=== PATIENT | male | born 1985 | race Two or more races ===

== ENCOUNTER 2021-11-01 18:36 | Emergency (ER) | payer BC ==
[2021-11-01] MEDS ORDERED: Aspirin 81 MG Tab.Chew PO ONE (19:00)
[2021-11-01] MEDS ORDERED: Nitroglycerin 0.4 MG Tab.SL SL ONE (19:01)
[2021-11-01 19:25] LABS: ANION GAP 7.3 meq/L (7-15); CHLORIDE,CL 101 mmol/L (98-107); SODIUM,NA 137 mmol/L (136-145)
[2021-11-01] MEDS ORDERED: methylPREDNISolone Sodium Succinate 125 MG/2 ML SDV IVPUSH ONE (19:35)
[2021-11-01] MEDS ORDERED: Ketorolac 30 MG/ML SDV IVPUSH ONE (19:35)
== END 2021-11-01 20:45 | disposition home or self-care (01) ==
LOC: LL.ED 18:36
DX: R07.89 Other chest pain (principal)
CPT/HCPCS: 36415; 71046; 80053; 83605; 83735; 83880; 84484; 85025; 85379; 93005; 96374; 96375; 99285-25; A9270-GY; J1885; J2930